=== PATIENT | female | born 1940 | race Caucasian/White ===

== ENCOUNTER 2018-07-24 10:55 | Day surgery (SDC) | payer OTHER ==
[2018-07-22 11:34] VITALS: BMI 37.8
[2018-07-24] MEDS ORDERED: LIDOCAINE HCL/PF 2% SDV 5ML VIAL ONE (11:09)
[2018-07-24] MEDS ORDERED: PROPOFOL 20 ML ONE (11:09)
[2018-07-24 14:23] VITALS: PULSE 74; TEMP 98.4
[2018-07-24 14:43] VITALS: BP 133/82
--- NOTE | 2018-07-26 16:36 | PATH ---
Surgical Pathology Report Patient Name: KASHMIR ALEX [facility]. Rec. #: [id number] /Age/Gender: 1940 (Age: 77) / F Account: [id number] Location: [facility] Taken: 07/24/2018 Received: 07/24/2018 Reported: 07/26/2018 Physicians: Mera Shabazz M.D. Specimen(s) Received A: BX 2ND PORTION DUODENUM B: BX GASTRIC ANTRUM Clinical History Dyspepsia Postoperative diagnosis: Large submucosal lesion, gastric ulcer Final Diagnosis A. SECOND PORTION OF DUODENUM, BIOPSY: DUODENAL MUCOSA WITH NO PATHOLOGIC FINDINGS. B. GASTRIC ANTRUM, BIOPSY: GASTRIC ANTRAL-TYPE MUCOSA SHOWING MILD CHRONIC GASTRITIS. (SEE NOTE) IMMUNOSTAIN IS NEGATIVE FOR H PYLORI ORGANISMS. Note: No submucosal tissue/lesion is identified. Electronically Signed Micheline George M.D. Gross Description A. Received in formalin, labeled "biopsy second portion duodenum" is a maradiaga, irregular portion of soft tissue measuring 0.4 cm. in greatest dimension. The specimen is submitted in toto in one cassette. B. Received in formalin, labeled "biopsy gastric antrum" is a maradiaga, irregular portion of soft tissue measuring 0.3 cm. in greatest dimension. The specimen is submitted in toto in one cassette. 07/25/2018 [facility]07/25/2018
== END 2018-07-24 14:45 ==
LOC: FASU-ENDO 10:55
PROVIDERS: ATTEND Internal Medicine Gastroenterology
PROC: 0DB68ZX Excision of Stomach, Via Natural or Artificial Opening Endoscopic, Diagnostic (ICD-10-PCS; 2018-07-24)
PROC: 0DB98ZX Excision of Duodenum, Via Natural or Artificial Opening Endoscopic, Diagnostic (ICD-10-PCS; principal; 2018-07-24 13:40)
DX: K29.50 Unspecified chronic gastritis without bleeding (principal); K25.9 Gastric ulcer, unspecified as acute or chronic, without hemorrhage or perforation; K44.9 Diaphragmatic hernia without obstruction or gangrene; K22.10 Ulcer of esophagus without bleeding; R10.13 Epigastric pain; K31.9 Disease of stomach and duodenum, unspecified
CPT/HCPCS: 88305-TC; 88342-TC

== ENCOUNTER 2020-02-23 14:34 | Inpatient (IN) | payer OTHER ==
[2020-02-23] MEDS ORDERED: CEFEPIME 2 GM in DEXTROSE 5%-WATER - 100 ML IVPB STA (15:23)
[2020-02-23] MEDS ORDERED: VANCOMYCIN 1,000 MG in DEXTROSE 5%-WATER - 250 ML IVPB STA (15:23)
[2020-02-23] MEDS ORDERED: VANCOMYCIN 1 GRAM (PRE-DOCKED) 1,000 MG/250 ML BAG IVPB ONE (15:40)
[2020-02-23] MEDS ORDERED: CEFEPIME 2 GM/100 ML BAG IVPB ONE ×2 (15:41→16:26)
[2020-02-23] MEDS ORDERED: ACETAMINOPHEN 1000 MG/100 ML BAG IVPB ONE (15:48)
[2020-02-23] MEDS ORDERED: ACETAMINOPHEN INJECTION 100 ML IVPB ONE (16:35)
[2020-02-23 16:40] LABS: BASO % 0.5 % (0-2.0); EOS % 1.4 % (0-4.5); HEMATOCRIT 34.6 % (32.4-45.2); HEMOGLOBIN 11.4 GM/dL (10.7-15.3); MCH 31.9 pg (25.7-33.7); MEAN CELL VOLUME 96.4 fl (80-96); MEAN PLT VOLUME 10.1 fl (7.5-11.1); MONO % 8.8 % (3.8-10.2); NEUT % 71.3 % (42.8-82.8); PLATELET COUNT 214 K/MM3 (134-434); RBC 3.59 M/mm3 (3.60-5.2); RDW 13.7 % (11.6-15.6); WHITE BLOOD COUNT 8.9 K/mm3 (4.0-10.0)
[2020-02-23 16:49] LABS: INR 1.32 (0.83-1.09); PROTHROMBIN TIME (PATIENT) 15.8 SEC (9.7-13.0)
[2020-02-23 16:52] LABS: ACTIVATED PTT 24.1 SECONDS (25.2-36.5)
[2020-02-23 17:00] LABS: CHLORIDE 116 mmol/L (98-107); SODIUM 147 mmol/L (136-145)
[2020-02-23 17:02] LABS: CALCIUM 9.4 mg/dL (8.5-10.1)
[2020-02-23 17:03] LABS: ALBUMIN 2.5 g/dl (3.4-5.0); ANION GAP 6 MMOL/L (8-16); BLOOD UREA NITROGEN 10.9 mg/dL (7-18); CO2 26 mmol/L (21-32); GLUCOSE,RANDOM 91 mg/dL (74-106)
[2020-02-23 17:06] LABS: CREATININE 1.2 mg/dL (0.55-1.3); SGOT/AST 29 U/L (15-37); SGPT/ALT 30 U/L (13-61)
[2020-02-23 17:07] LABS: BILIRUBIN,TOTAL 0.8 mg/dL (0.2-1)
[2020-02-23 17:09] LABS: ALK PHOS 72 U/L (45-117)
[2020-02-23 22:45] LABS: EPI CELLS 22 /uL (0-25.1); HYALINE CASTS 23 /uL (0-3.1); PH,URINE 5.5 (5.0-8.0); URINE APPEARANCE TURBID; URINE BACTERIA 52 /uL (0-1359); URINE BILIRUBIN NEGATIVE (NEGATIVE); URINE COLOR YELLOW; URINE GLUCOSE (UA) NEGATIVE (NEGATIVE); URINE KETONE TRACE (NEGATIVE); URINE LEUK ESTERASE 2+ (NEGATIVE); URINE NITRITE NEGATIVE (NEGATIVE); URINE PROTEIN 2+ (NEGATIVE); URINE RBC 262 /uL (0-23.9); URINE UROBILINOGEN 0.2 mg/dL (0.2-1.0); URINE WBC 8197 /uL (0-25.8)
[2020-02-23] MEDS ORDERED: ERGOCALCIFEROL (VIT D2) 50,000 UNIT (1.25 MG) CAPSULE PO SCH (23:45)
[2020-02-23] MEDS ORDERED: ASPIRIN 81 MG CHEWABLE TABLETS PO ONE (23:45)
[2020-02-24] MEDS ORDERED: SODIUM CHLORIDE 0.45% 1,000 ML IV SCH (00:15)
[2020-02-24] MEDS ORDERED: ASPIRIN 81 MG CHEWABLE TABLETS ONE ×2 (00:28→02:34)
[2020-02-24] MEDS ORDERED: CEFEPIME 1 GM/100 ML BAG IVPB ONE (01:12)
[2020-02-24] MEDS: CEFEPIME HCL/D5W 1 GM/50 ML BAG IVPB SCH ×2 (01:16→02:08)
[2020-02-24] MEDS ORDERED: clonazePAM 0.5 MG TABLET ONE (06:12)
[2020-02-24] MEDS ORDERED: DIVALPROEX SODIUM 125 MG TABLET E.C. ONE (06:13)
[2020-02-24] MEDS ORDERED: GABAPENTIN 100 MG CAPSULE ONE (06:13)
[2020-02-24] MEDS ORDERED: HEPARIN NA (PORCINE) 5,000 UNITS/ML 1ML VIAL ONE (06:13)
[2020-02-24] MEDS ORDERED: LEVOTHYROXINE NA 25 MCG TABLET (FP) ONE (06:15)
[2020-02-24] MEDS: clonazePAM 0.5 MG TABLET PO SCH ×3 (06:21→21:35)
[2020-02-24] MEDS: LEVOTHYROXINE NA 25 MCG TABLET (FP) PO SCH (06:21)
[2020-02-24] MEDS: GABAPENTIN 100 MG CAPSULE PO SCH ×3 (06:21→21:36)
[2020-02-24] MEDS: DIVALPROEX SODIUM 250 MG TABLET E.C. PO SCH ×3 (06:21→21:35)
[2020-02-24] MEDS: HEPARIN NA (PORCINE) 5,000 UNITS/ML 1ML VIAL SQ SCH ×3 (06:21→21:36)
[2020-02-24 07:33] LABS: BASO % 0.6 % (0-2.0); EOS % 3.1 % (0-4.5); HEMATOCRIT 34.2 % (32.4-45.2); HEMOGLOBIN 11.3 GM/dL (10.7-15.3); LYMPH % 10.6 % (8-40); MCH 31.8 pg (25.7-33.7); MEAN CELL VOLUME 96.4 fl (80-96); MEAN PLT VOLUME 10.1 fl (7.5-11.1); MONO % 5.6 % (3.8-10.2); NEUT % 80.1 % (42.8-82.8); PLATELET COUNT 181 K/MM3 (134-434); RBC 3.55 M/mm3 (3.60-5.2); RDW 13.6 % (11.6-15.6); WHITE BLOOD COUNT 11.6 K/mm3 (4.0-10.0)
[2020-02-24 07:56] LABS: ALBUMIN 2.5 g/dl (3.4-5.0); CALCIUM 9.2 mg/dL (8.5-10.1)
[2020-02-24 07:57] LABS: BLOOD UREA NITROGEN 14.9 mg/dL (7-18); MAGNESIUM 2.2 mg/dL (1.8-2.4)
[2020-02-24 08:00] LABS: BILIRUBIN,TOTAL 0.7 mg/dL (0.2-1); CREATININE 1.1 mg/dL (0.55-1.3); PHOSPHOROUS 2.8 mg/dL (2.5-4.9)
[2020-02-24 08:02] LABS: TOT PROT 5.8 g/dl (6.4-8.2)
[2020-02-24] MEDS ORDERED: SODIUM CHLORIDE 0.45% 1,000 ML with POTASSIUM CHLORIDE 10 MEQ IV SCH (08:46)
[2020-02-24] MEDS ORDERED: KCL 10 MEQ IVPB 10 MEQ/100 ML INFUS.BAG IVPB ONE (09:16)
[2020-02-24] MEDS: KCL 10 MEQ IVPB 10 MEQ/100 ML INFUS.BAG IVPB SCH ×3 (09:20→14:46)
[2020-02-24] MEDS ORDERED: ASPIRIN 81 MG CHEWABLE TABLETS PO SCH (10:00)
[2020-02-24] MEDS ORDERED: VANCOMYCIN 1 GM in D5W (PRE-DOCKED) 1,000 MG/250 ML IVPB ONE (10:00)
[2020-02-24] MEDS ORDERED: VANCOMYCIN 1 GRAM (PRE-DOCKED) 1,000 MG/250 ML BAG IVPB ONE (10:00)
[2020-02-24] MEDS ORDERED: PATIENT'S OWN MEDICATION (NON-FORMULARY) (Olopatadine Hcl [Pataday] 2.5 ML Drops) OU SCH (10:00)
[2020-02-24] MEDS ORDERED: CEFEPIME HCL 1 GM VIAL (RESTRICTED TO ID) ONE ×3 (10:03→17:59)
[2020-02-24] MEDS ORDERED: DEXTROSE 5%-WATER 100 ML IVPB ONE ×2 (12:49→17:59)
[2020-02-24] MEDS ORDERED: LORazepam 2 MG/ML SDV VIAL IVPUSH ONE (13:00)
[2020-02-24] MEDS: PANTOPRAZOLE 40 MG TABLET PO SCH (13:07)
[2020-02-24] MEDS: ESCITALOPRAM OXALATE 10 MG TABLET PO SCH (13:07)
[2020-02-24] MEDS: CEFEPIME 1 GM in DEXTROSE 5%-WATER 100 ML IVPB SCH ×2 (14:46→18:02)
[2020-02-24] MEDS: POTASSIUM CHLORIDE 10 MEQ in SODIUM CHLORIDE 0.45% 1,000 ML IV SCH (14:46)
[2020-02-24] MEDS ORDERED: LORazepam 0.5 MG TABLET PO PRN (15:33)
[2020-02-24] MEDS: CLOTRIMAZOLE 1%TOPICAL SOLUTION 30 ML BOTTLE TP SCH (21:34)
[2020-02-24] MEDS: lamoTRIgine 25 MG TABLET PO SCH (21:35)
[2020-02-25] MEDS: POTASSIUM CHLORIDE 10 MEQ in SODIUM CHLORIDE 0.45% 1,000 ML IV SCH ×2 (00:07→17:45)
[2020-02-25] MEDS ORDERED: CEFEPIME HCL 1 GM VIAL (RESTRICTED TO ID) ONE ×3 (01:22→17:42)
[2020-02-25] MEDS ORDERED: DEXTROSE 5%-WATER 100 ML IVPB ONE ×3 (01:22→17:43)
[2020-02-25] MEDS: CEFEPIME 1 GM in DEXTROSE 5%-WATER 100 ML IVPB SCH (02:06)
[2020-02-25] MEDS: HEPARIN NA (PORCINE) 5,000 UNITS/ML 1ML VIAL SQ SCH ×3 (05:39→22:34)
[2020-02-25] MEDS: GABAPENTIN 100 MG CAPSULE PO SCH ×3 (05:39→22:33)
[2020-02-25] MEDS: DIVALPROEX SODIUM 250 MG TABLET E.C. PO SCH ×3 (05:39→22:33)
[2020-02-25] MEDS: clonazePAM 0.5 MG TABLET PO SCH ×3 (05:39→22:33)
[2020-02-25] MEDS: LEVOTHYROXINE NA 25 MCG TABLET (FP) PO SCH (06:07)
[2020-02-25 14:09] LABS: CALCIUM 9.4 mg/dL (8.5-10.1)
[2020-02-25 14:10] LABS: ALBUMIN 2.5 g/dl (3.4-5.0); BLOOD UREA NITROGEN 10.8 mg/dL (7-18)
[2020-02-25 14:15] LABS: BILIRUBIN,TOTAL 0.8 mg/dL (0.2-1); TOT PROT 6.2 g/dl (6.4-8.2)
[2020-02-25] MEDS: ACETAMINOPHEN 500 MG TABLET (FP) PO PRN (14:30)
[2020-02-25] MEDS: PANTOPRAZOLE 40 MG TABLET PO SCH (14:31)
[2020-02-25] MEDS: CEFEPIME 1 GM in DEXTROSE 5%-WATER 1 GM/100 ML BAG IVPB SCH ×2 (14:31→17:45)
[2020-02-25] MEDS: CLOPIDOGREL BISULFATE 75 MG TABLET (FP) PO SCH (14:31)
[2020-02-25] MEDS: CEFEPIME HCL/D5W 1 GM/50 ML BAG IVPB SCH ×3 (14:32→14:38)
[2020-02-25] MEDS: CLOTRIMAZOLE 1%TOPICAL SOLUTION 30 ML BOTTLE TP SCH ×2 (14:44→22:34)
[2020-02-25] MEDS: ESCITALOPRAM OXALATE 10 MG TABLET PO SCH (15:27)
[2020-02-25] MEDS: LORazepam 2 MG/ML SDV VIAL IVPUSH PRN ×2 (15:38→23:26)
[2020-02-25] MEDS: ACETAMINOPHEN 1000 MG/100 ML BAG IVPB PRN ×2 (15:39→23:26)
[2020-02-25] MEDS: lamoTRIgine 25 MG TABLET PO SCH (22:33)
[2020-02-26] MEDS ORDERED: CEFEPIME HCL 1 GM VIAL (RESTRICTED TO ID) ONE ×3 (02:45→18:12)
[2020-02-26] MEDS ORDERED: DEXTROSE 5%-WATER 100 ML IVPB ONE ×3 (02:45→18:12)
[2020-02-26] MEDS: CEFEPIME 1 GM in DEXTROSE 5%-WATER 1 GM/100 ML BAG IVPB SCH ×3 (02:58→18:20)
[2020-02-26 06:27] LABS: BASO % 0.8 % (0-2.0); EOS % 5.7 % (0-4.5); HEMATOCRIT 35.7 % (32.4-45.2); HEMOGLOBIN 11.9 GM/dL (10.7-15.3); LYMPH % 14.2 % (8-40); MCH 32.1 pg (25.7-33.7); MCHC 33.3 g/dl (32.0-36.0); MEAN CELL VOLUME 96.4 fl (80-96); MEAN PLT VOLUME 10.8 fl (7.5-11.1); MONO % 5.6 % (3.8-10.2); NEUT % 73.7 % (42.8-82.8); PLATELET COUNT 200 K/MM3 (134-434); RDW 13.6 % (11.6-15.6); WHITE BLOOD COUNT 9.6 K/mm3 (4.0-10.0)
[2020-02-26] MEDS: clonazePAM 0.5 MG TABLET PO SCH (06:28)
[2020-02-26] MEDS: HEPARIN NA (PORCINE) 5,000 UNITS/ML 1ML VIAL SQ SCH ×3 (06:28→22:55)
[2020-02-26] MEDS: LEVOTHYROXINE NA 25 MCG TABLET (FP) PO SCH (06:28)
[2020-02-26] MEDS: DIVALPROEX SODIUM 250 MG TABLET E.C. PO SCH ×2 (06:28→14:15)
[2020-02-26] MEDS: GABAPENTIN 100 MG CAPSULE PO SCH ×3 (06:28→22:52)
[2020-02-26] MEDS: POTASSIUM CHLORIDE 10 MEQ in SODIUM CHLORIDE 0.45% 1,000 ML IV SCH ×3 (06:28→22:54)
[2020-02-26 06:43] LABS: ALBUMIN 2.4 g/dl (3.4-5.0); CALCIUM 8.9 mg/dL (8.5-10.1)
[2020-02-26 06:48] LABS: BILIRUBIN,TOTAL 0.8 mg/dL (0.2-1); TOT PROT 5.9 g/dl (6.4-8.2)
[2020-02-26] MEDS: CLOPIDOGREL BISULFATE 75 MG TABLET (FP) PO SCH (09:18)
[2020-02-26] MEDS: PANTOPRAZOLE 40 MG TABLET PO SCH (09:19)
[2020-02-26] MEDS: ESCITALOPRAM OXALATE 10 MG TABLET PO SCH (09:20)
[2020-02-26] MEDS: CLOTRIMAZOLE 1%TOPICAL SOLUTION 30 ML BOTTLE TP SCH ×2 (09:29→23:46)
[2020-02-26] MEDS: LORazepam 2 MG/ML SDV VIAL IVPUSH PRN (10:53)
[2020-02-26] MEDS: ACETAMINOPHEN 500 MG TABLET (FP) PO PRN ×2 (18:17→23:57)
[2020-02-26] MEDS: OLANZapine 10 MG TABLET PO SCH (22:52)
[2020-02-26] MEDS: VALPROATE SODIUM 250 MG/5 ML UNIT DOSE CUP PO SCH (22:52)
[2020-02-27] MEDS ORDERED: CEFEPIME HCL 1 GM VIAL (RESTRICTED TO ID) ONE ×5 (00:40→22:25)
[2020-02-27] MEDS ORDERED: DEXTROSE 5%-WATER 100 ML IVPB ONE ×3 (00:40→17:08)
[2020-02-27] MEDS: CEFEPIME 1 GM in DEXTROSE 5%-WATER 1 GM/100 ML BAG IVPB SCH ×3 (01:02→17:09)
[2020-02-27] MEDS: GABAPENTIN 100 MG CAPSULE PO SCH ×3 (05:58→22:00)
[2020-02-27] MEDS: HEPARIN NA (PORCINE) 5,000 UNITS/ML 1ML VIAL SQ SCH ×3 (05:58→21:59)
[2020-02-27] MEDS: VALPROATE SODIUM 250 MG/5 ML UNIT DOSE CUP PO SCH ×2 (05:58→22:00)
[2020-02-27] MEDS: LEVOTHYROXINE NA 25 MCG TABLET (FP) PO SCH (05:59)
[2020-02-27] MEDS: LORazepam 2 MG/ML SDV VIAL IVPUSH PRN ×2 (10:18→18:45)
[2020-02-27] MEDS: OLANZapine 10 MG TABLET PO SCH ×2 (10:20→22:01)
[2020-02-27] MEDS: PANTOPRAZOLE 40 MG TABLET PO SCH (10:20)
[2020-02-27] MEDS: CLOPIDOGREL BISULFATE 75 MG TABLET (FP) PO SCH (10:20)
[2020-02-27] MEDS: ACETAMINOPHEN 500 MG TABLET (FP) PO PRN ×3 (10:20→22:00)
[2020-02-27] MEDS: POTASSIUM CHLORIDE 10 MEQ in SODIUM CHLORIDE 0.45% 1,000 ML IV SCH ×2 (10:23→12:52)
[2020-02-27] MEDS: CLOTRIMAZOLE 1%TOPICAL SOLUTION 30 ML BOTTLE TP SCH ×2 (10:27→22:01)
[2020-02-27] MEDS: NYSTATIN POWDER 100,000 UNITS/GM - 15 GM TOPICAL POWDER TP SCH (22:01)
[2020-02-28] MEDS: CEFEPIME 1 GM in DEXTROSE 5%-WATER 1 GM/100 ML BAG IVPB SCH ×3 (01:46→18:47)
[2020-02-28] MEDS: LORazepam 2 MG/ML SDV VIAL IVPUSH PRN ×3 (01:48→22:16)
[2020-02-28] MEDS: POTASSIUM CHLORIDE 10 MEQ in SODIUM CHLORIDE 0.45% 1,000 ML IV SCH ×2 (03:10→17:02)
[2020-02-28] MEDS: HEPARIN NA (PORCINE) 5,000 UNITS/ML 1ML VIAL SQ SCH ×3 (06:11→22:14)
[2020-02-28] MEDS: LEVOTHYROXINE NA 25 MCG TABLET (FP) PO SCH (06:11)
[2020-02-28] MEDS: GABAPENTIN 100 MG CAPSULE PO SCH ×3 (06:11→22:14)
[2020-02-28] MEDS: ACETAMINOPHEN 500 MG TABLET (FP) PO PRN ×3 (06:11→22:14)
[2020-02-28] MEDS ORDERED: CEFEPIME HCL 1 GM VIAL (RESTRICTED TO ID) ONE ×4 (12:01→22:39)
[2020-02-28] MEDS ORDERED: DEXTROSE 5%-WATER 100 ML IVPB ONE ×4 (12:01→22:39)
[2020-02-28] MEDS ORDERED: PT OWN MED DRAWER 7, Y5N ONE (12:02)
[2020-02-28] MEDS: VALPROATE SODIUM 250 MG/5 ML UNIT DOSE CUP PO SCH ×2 (12:06→22:14)
[2020-02-28] MEDS: CLOTRIMAZOLE 1%TOPICAL SOLUTION 30 ML BOTTLE TP SCH ×2 (12:07→22:33)
[2020-02-28] MEDS: NYSTATIN POWDER 100,000 UNITS/GM - 15 GM TOPICAL POWDER TP SCH ×2 (12:08→22:33)
[2020-02-28] MEDS: CLOPIDOGREL BISULFATE 75 MG TABLET (FP) PO SCH (12:08)
[2020-02-28] MEDS: OLANZapine 10 MG TABLET PO SCH ×2 (12:08→22:14)
[2020-02-28] MEDS: PANTOPRAZOLE 40 MG TABLET PO SCH (12:10)
[2020-02-29] MEDS: POTASSIUM CHLORIDE 10 MEQ in SODIUM CHLORIDE 0.45% 1,000 ML IV SCH ×2 (00:40→11:33)
[2020-02-29] MEDS: CEFEPIME 1 GM in DEXTROSE 5%-WATER 1 GM/100 ML BAG IVPB SCH ×3 (01:39→17:20)
[2020-02-29] MEDS: ACETAMINOPHEN 500 MG TABLET (FP) PO PRN ×2 (05:25→21:30)
[2020-02-29] MEDS: LORazepam 2 MG/ML SDV VIAL IVPUSH PRN ×3 (06:06→22:38)
[2020-02-29] MEDS: GABAPENTIN 100 MG CAPSULE PO SCH ×3 (06:06→21:28)
[2020-02-29] MEDS: LEVOTHYROXINE NA 25 MCG TABLET (FP) PO SCH (06:06)
[2020-02-29] MEDS: HEPARIN NA (PORCINE) 5,000 UNITS/ML 1ML VIAL SQ SCH ×3 (06:06→21:28)
[2020-02-29 08:35] LABS: ALBUMIN 2.2 g/dl (3.4-5.0); CALCIUM 9.6 mg/dL (8.5-10.1)
[2020-02-29 08:36] LABS: BLOOD UREA NITROGEN 7.2 mg/dL (7-18)
[2020-02-29 08:40] LABS: BILIRUBIN,TOTAL 0.6 mg/dL (0.2-1); TOT PROT 6.5 g/dl (6.4-8.2)
[2020-02-29] MEDS ORDERED: CEFEPIME HCL 1 GM VIAL (RESTRICTED TO ID) ONE ×3 (11:38→23:09)
[2020-02-29] MEDS ORDERED: DEXTROSE 5%-WATER 100 ML IVPB ONE ×3 (11:38→23:09)
[2020-02-29] MEDS: PANTOPRAZOLE 40 MG TABLET PO SCH (11:42)
[2020-02-29] MEDS: OLANZapine 10 MG TABLET PO SCH ×2 (11:42→21:29)
[2020-02-29] MEDS: VALPROATE SODIUM 250 MG/5 ML UNIT DOSE CUP PO SCH ×2 (11:43→21:28)
[2020-02-29] MEDS: CLOPIDOGREL BISULFATE 75 MG TABLET (FP) PO SCH (11:43)
[2020-02-29] MEDS: CLOTRIMAZOLE 1%TOPICAL SOLUTION 30 ML BOTTLE TP SCH ×2 (11:43→22:04)
[2020-02-29] MEDS: NYSTATIN POWDER 100,000 UNITS/GM - 15 GM TOPICAL POWDER TP SCH ×2 (11:43→22:04)
[2020-02-29] MEDS: FAMOTIDINE 20 MG TABLET PO SCH ×2 (14:19→21:28)
[2020-02-29] MEDS ORDERED: DEXTROSE 5%-0.45% SALINE 1,000 ML IV SCH (15:45)
[2020-03-01] MEDS: CEFEPIME 1 GM in DEXTROSE 5%-WATER 1 GM/100 ML BAG IVPB SCH ×2 (01:55→10:31)
[2020-03-01] MEDS: HEPARIN NA (PORCINE) 5,000 UNITS/ML 1ML VIAL SQ SCH ×3 (06:00→21:43)
[2020-03-01] MEDS: ACETAMINOPHEN 500 MG TABLET (FP) PO PRN ×2 (06:00→21:55)
[2020-03-01] MEDS: GABAPENTIN 100 MG CAPSULE PO SCH ×3 (06:00→21:43)
[2020-03-01] MEDS: LORazepam 2 MG/ML SDV VIAL IVPUSH PRN (06:02)
[2020-03-01] MEDS: LEVOTHYROXINE NA 25 MCG TABLET (FP) PO SCH (06:22)
[2020-03-01] MEDS ORDERED: CEFEPIME HCL 1 GM VIAL (RESTRICTED TO ID) ONE (10:24)
[2020-03-01] MEDS ORDERED: DEXTROSE 5%-WATER 100 ML IVPB ONE (10:24)
[2020-03-01] MEDS: VALPROATE SODIUM 250 MG/5 ML UNIT DOSE CUP PO SCH ×3 (10:31→21:42)
[2020-03-01] MEDS: CLOTRIMAZOLE 1%TOPICAL SOLUTION 30 ML BOTTLE TP SCH ×2 (10:31→21:54)
[2020-03-01] MEDS: CLOPIDOGREL BISULFATE 75 MG TABLET (FP) PO SCH (10:31)
[2020-03-01] MEDS: OLANZapine 10 MG TABLET PO SCH ×2 (10:31→22:17)
[2020-03-01] MEDS: FAMOTIDINE 20 MG TABLET PO SCH ×2 (10:31→21:43)
[2020-03-01] MEDS: NYSTATIN POWDER 100,000 UNITS/GM - 15 GM TOPICAL POWDER TP SCH ×2 (10:31→21:55)
[2020-03-01] MEDS: LORazepam 2 MG/ML SDV VIAL IM PRN ×2 (13:12→21:43)
[2020-03-01 13:29] LABS: ALBUMIN 2.2 g/dl (3.4-5.0); CALCIUM 9.8 mg/dL (8.5-10.1)
[2020-03-01 13:30] LABS: BLOOD UREA NITROGEN 7.1 mg/dL (7-18)
[2020-03-01 13:32] LABS: CREATININE 0.9 mg/dL (0.55-1.3)
[2020-03-01 13:33] LABS: BILIRUBIN,TOTAL 0.4 mg/dL (0.2-1); TOT PROT 6.2 g/dl (6.4-8.2)
[2020-03-01 16:13] VITALS: BMI 33.2
[2020-03-01] MEDS ORDERED: POTASSIUM CHLORIDE TABS 20 MEQ TABLET.ER (FP) PO ONE (16:45)
[2020-03-01] MEDS: KCL 10 MEQ IVPB 10 MEQ/100 ML INFUS.BAG IVPB SCH ×3 (17:41→20:33)
[2020-03-01 21:13] LABS: BASO % 0.7 % (0-2.0); EOS % 1.8 % (0-4.5); HEMATOCRIT 36.4 % (32.4-45.2); HEMOGLOBIN 12.5 GM/dL (10.7-15.3); MCH 32.7 pg (25.7-33.7); MCHC 34.4 g/dl (32.0-36.0); MEAN CELL VOLUME 95.3 fl (80-96); MONO % 13.9 % (3.8-10.2); NEUT % 61.6 % (42.8-82.8); PLATELET COUNT 281 K/MM3 (134-434); RBC 3.82 M/mm3 (3.60-5.2); RDW 14.3 % (11.6-15.6); WHITE BLOOD COUNT 8.8 K/mm3 (4.0-10.0)
[2020-03-01] MEDS ORDERED: DIVALPROEX SODIUM 500 MG TABLET E.C. PO SCH (22:00)
[2020-03-01 23:02] LABS: ANISOCYTOSIS 1+; MACROCYTOSIS 1+
[2020-03-01 23:03] LABS: PLATELET ESTIMATE ADEQUATE
[2020-03-02] MEDS: GABAPENTIN 100 MG CAPSULE PO SCH ×3 (07:03→21:18)
[2020-03-02] MEDS: LEVOTHYROXINE NA 25 MCG TABLET (FP) PO SCH (07:03)
[2020-03-02] MEDS: ACETAMINOPHEN 500 MG TABLET (FP) PO PRN (07:03)
[2020-03-02] MEDS: HEPARIN NA (PORCINE) 5,000 UNITS/ML 1ML VIAL SQ SCH ×3 (07:04→22:22)
[2020-03-02] MEDS ORDERED: PT OWN MED DRAWER 7, Y5N ONE (09:33)
[2020-03-02] MEDS: VALPROATE SODIUM 250 MG/5 ML UNIT DOSE CUP PO SCH ×2 (10:07→21:17)
[2020-03-02] MEDS: OLANZapine 10 MG TABLET PO SCH ×2 (10:08→21:18)
[2020-03-02] MEDS: CLOPIDOGREL BISULFATE 75 MG TABLET (FP) PO SCH (10:08)
[2020-03-02] MEDS: FAMOTIDINE 20 MG TABLET PO SCH ×2 (10:08→21:18)
[2020-03-02 11:06] LABS: CALCIUM 9.9 mg/dL (8.5-10.1)
[2020-03-02 11:07] LABS: ALBUMIN 2.2 g/dl (3.4-5.0); BLOOD UREA NITROGEN 5.6 mg/dL (7-18); MAGNESIUM 2.2 mg/dL (1.8-2.4)
[2020-03-02 11:10] LABS: CREATININE 0.8 mg/dL (0.55-1.3)
[2020-03-02 11:12] LABS: TOT PROT 6.4 g/dl (6.4-8.2)
[2020-03-02 11:20] LABS: BILIRUBIN,TOTAL 0.4 mg/dL (0.2-1)
[2020-03-02] MEDS: NYSTATIN POWDER 100,000 UNITS/GM - 15 GM TOPICAL POWDER TP SCH ×2 (11:58→22:23)
[2020-03-02] MEDS: CLOTRIMAZOLE 1%TOPICAL SOLUTION 30 ML BOTTLE TP SCH ×2 (11:59→22:22)
[2020-03-02] MEDS: AMINO ACIDS 4.25%/D5W 1,000 ML IV SCH (18:10)
[2020-03-02] MEDS: LORazepam 2 MG/ML SDV VIAL IM PRN (22:22)
[2020-03-03] MEDS: GABAPENTIN 100 MG CAPSULE PO SCH ×3 (05:27→22:09)
[2020-03-03] MEDS: HEPARIN NA (PORCINE) 5,000 UNITS/ML 1ML VIAL SQ SCH ×3 (05:38→22:09)
[2020-03-03] MEDS: LEVOTHYROXINE NA 25 MCG TABLET (FP) PO SCH (06:10)
[2020-03-03] MEDS: CLOPIDOGREL BISULFATE 75 MG TABLET (FP) PO SCH (09:25)
[2020-03-03] MEDS: FAMOTIDINE 20 MG TABLET PO SCH ×2 (09:25→22:09)
[2020-03-03] MEDS: VALPROATE SODIUM 250 MG/5 ML UNIT DOSE CUP PO SCH ×2 (09:25→22:08)
[2020-03-03] MEDS: OLANZapine 10 MG TABLET PO SCH ×2 (09:26→22:09)
[2020-03-03] MEDS: CLOTRIMAZOLE 1%TOPICAL SOLUTION 30 ML BOTTLE TP SCH ×2 (09:30→22:09)
[2020-03-03] MEDS: NYSTATIN POWDER 100,000 UNITS/GM - 15 GM TOPICAL POWDER TP SCH ×2 (09:30→22:09)
[2020-03-03 11:31] LABS: BASO % 0.6 % (0-2.0); HEMATOCRIT 35.5 % (32.4-45.2); HEMOGLOBIN 11.9 GM/dL (10.7-15.3); LYMPH % 18.7 % (8-40); MCHC 33.4 g/dl (32.0-36.0); MEAN CELL VOLUME 95.8 fl (80-96); MEAN PLT VOLUME 10.4 fl (7.5-11.1); MONO % 11.3 % (3.8-10.2); NEUT % 67.4 % (42.8-82.8); PLATELET COUNT 345 K/MM3 (134-434); RDW 14.9 % (11.6-15.6)
[2020-03-03 11:47] LABS: CALCIUM 10.1 mg/dL (8.5-10.1)
[2020-03-03 11:48] LABS: ALBUMIN 2.3 g/dl (3.4-5.0); BLOOD UREA NITROGEN 8.9 mg/dL (7-18)
[2020-03-03 11:51] LABS: CREATININE 0.8 mg/dL (0.55-1.3)
[2020-03-03 11:53] LABS: BILIRUBIN,TOTAL 0.5 mg/dL (0.2-1); TOT PROT 6.6 g/dl (6.4-8.2)
[2020-03-03 12:36] LABS: ANISOCYTOSIS 0; MACROCYTOSIS 0; PLATELET ESTIMATE NORMAL
[2020-03-03] MEDS: KCL 10 MEQ IVPB 10 MEQ/100 ML INFUS.BAG IVPB SCH ×2 (12:50→14:08)
[2020-03-03] MEDS: AMINO ACIDS 4.25%/D5W 1,000 ML IV SCH (16:35)
[2020-03-03] MEDS: ACETAMINOPHEN 500 MG TABLET (FP) PO PRN (22:10)
[2020-03-04] MEDS ORDERED: PT OWN MED DRAWER 7, Y5N ONE (00:57)
[2020-03-04] MEDS: HEPARIN NA (PORCINE) 5,000 UNITS/ML 1ML VIAL SQ SCH ×3 (05:35→21:21)
[2020-03-04] MEDS: GABAPENTIN 100 MG CAPSULE PO SCH ×3 (05:35→21:21)
[2020-03-04] MEDS: LEVOTHYROXINE NA 25 MCG TABLET (FP) PO SCH (06:25)
[2020-03-04] MEDS: OLANZapine 10 MG TABLET PO SCH ×2 (10:45→21:21)
[2020-03-04] MEDS: VALPROATE SODIUM 250 MG/5 ML UNIT DOSE CUP PO SCH ×2 (10:45→21:20)
[2020-03-04] MEDS: FAMOTIDINE 20 MG TABLET PO SCH ×2 (10:45→21:21)
[2020-03-04] MEDS: CLOPIDOGREL BISULFATE 75 MG TABLET (FP) PO SCH (10:45)
[2020-03-04] MEDS: NYSTATIN POWDER 100,000 UNITS/GM - 15 GM TOPICAL POWDER TP SCH ×2 (10:45→21:21)
[2020-03-04] MEDS: CLOTRIMAZOLE 1%TOPICAL SOLUTION 30 ML BOTTLE TP SCH ×2 (10:47→21:20)
[2020-03-04] MEDS ORDERED: AMINO ACIDS 4.25%/D5W 1,000 ML IV SCH (13:33)
[2020-03-04 13:59] LABS: CALCIUM 9.9 mg/dL (8.5-10.1)
[2020-03-04 14:00] LABS: ALBUMIN 2.1 g/dl (3.4-5.0); BLOOD UREA NITROGEN 10.4 mg/dL (7-18)
[2020-03-04 14:03] LABS: CREATININE 0.8 mg/dL (0.55-1.3)
[2020-03-04 14:04] LABS: TOT PROT 5.8 g/dl (6.4-8.2)
[2020-03-04 14:35] LABS: BASO % 0.5 % (0-2.0); EOS % 3.7 % (0-4.5); HEMATOCRIT 32.5 % (32.4-45.2); HEMOGLOBIN 10.9 GM/dL (10.7-15.3); LYMPH % 25.3 % (8-40); MCH 32.8 pg (25.7-33.7); MCHC 33.6 g/dl (32.0-36.0); MEAN CELL VOLUME 97.5 fl (80-96); MEAN PLT VOLUME 10.3 fl (7.5-11.1); MONO % 9.8 % (3.8-10.2); NEUT % 60.7 % (42.8-82.8); PLATELET COUNT 315 K/MM3 (134-434); RBC 3.33 M/mm3 (3.60-5.2); WHITE BLOOD COUNT 6.9 K/mm3 (4.0-10.0)
[2020-03-04 15:05] LABS: ANISOCYTOSIS 0; MACROCYTOSIS 0; PLATELET ESTIMATE NORMAL
[2020-03-04] MEDS ORDERED: LORazepam 2 MG/ML SDV VIAL IVPUSH ONE (18:13)
[2020-03-04] MEDS: POTASSIUM CHLORIDE 20 MEQ in AMINO ACIDS 4.25%/D5W 1,000 ML IV SCH (21:16)
[2020-03-04] MEDS: KCL 10 MEQ IVPB 10 MEQ/100 ML INFUS.BAG IVPB SCH ×2 (21:31→22:51)
[2020-03-04] MEDS ORDERED: ACETAMINOPHEN 1000 MG/100 ML BAG IVPB ONE (22:07)
[2020-03-05] MEDS: KCL 10 MEQ IVPB 10 MEQ/100 ML INFUS.BAG IVPB SCH (01:51)
[2020-03-05] MEDS: HEPARIN NA (PORCINE) 5,000 UNITS/ML 1ML VIAL SQ SCH ×3 (05:38→21:08)
[2020-03-05] MEDS: GABAPENTIN 100 MG CAPSULE PO SCH ×3 (05:39→21:08)
[2020-03-05] MEDS: LEVOTHYROXINE NA 25 MCG TABLET (FP) PO SCH (06:18)
[2020-03-05 07:55] LABS: ALBUMIN 2.4 g/dl (3.4-5.0); CALCIUM 10.9 mg/dL (8.5-10.1)
[2020-03-05 07:56] LABS: BLOOD UREA NITROGEN 10.3 mg/dL (7-18); MAGNESIUM 2.2 mg/dL (1.8-2.4)
[2020-03-05 07:59] LABS: CREATININE 0.8 mg/dL (0.55-1.3)
[2020-03-05 08:00] LABS: BILIRUBIN,TOTAL 0.4 mg/dL (0.2-1); TOT PROT 6.6 g/dl (6.4-8.2)
[2020-03-05] MEDS: CLOPIDOGREL BISULFATE 75 MG TABLET (FP) PO SCH (14:14)
[2020-03-05] MEDS: FAMOTIDINE 20 MG TABLET PO SCH ×2 (14:14→21:08)
[2020-03-05] MEDS: VALPROATE SODIUM 250 MG/5 ML UNIT DOSE CUP PO SCH ×2 (14:14→21:07)
[2020-03-05] MEDS: OLANZapine 10 MG TABLET PO SCH ×2 (14:14→21:10)
[2020-03-05] MEDS: CLOTRIMAZOLE 1%TOPICAL SOLUTION 30 ML BOTTLE TP SCH ×2 (14:15→21:09)
[2020-03-05] MEDS: POTASSIUM CHLORIDE 20 MEQ in AMINO ACIDS 4.25%/D5W 1,000 ML IV SCH (14:15)
[2020-03-05] MEDS: NYSTATIN POWDER 100,000 UNITS/GM - 15 GM TOPICAL POWDER TP SCH ×2 (14:15→21:09)
[2020-03-05] MEDS: SODIUM CHLORIDE 0.45% 1,000 ML IV SCH (17:19)
[2020-03-05] MEDS ORDERED: PT OWN MED DRAWER 7, Y5N ONE (20:53)
[2020-03-05] MEDS: ACETAMINOPHEN 500 MG TABLET (FP) PO PRN (21:07)
[2020-03-06] MEDS: POTASSIUM CHLORIDE 20 MEQ in AMINO ACIDS 4.25%/D5W 1,000 ML IV SCH ×2 (05:24→05:39)
[2020-03-06] MEDS: GABAPENTIN 100 MG CAPSULE PO SCH ×3 (05:24→21:05)
[2020-03-06] MEDS: HEPARIN NA (PORCINE) 5,000 UNITS/ML 1ML VIAL SQ SCH ×3 (05:24→21:02)
[2020-03-06] MEDS: ACETAMINOPHEN 500 MG TABLET (FP) PO PRN ×3 (05:27→21:05)
[2020-03-06] MEDS: LEVOTHYROXINE NA 25 MCG TABLET (FP) PO SCH (06:44)
[2020-03-06] MEDS: CLOPIDOGREL BISULFATE 75 MG TABLET (FP) PO SCH (10:00)
[2020-03-06] MEDS: VALPROATE SODIUM 250 MG/5 ML UNIT DOSE CUP PO SCH ×2 (10:00→21:04)
[2020-03-06] MEDS: OLANZapine 10 MG TABLET PO SCH ×2 (10:01→21:05)
[2020-03-06] MEDS: NYSTATIN POWDER 100,000 UNITS/GM - 15 GM TOPICAL POWDER TP SCH ×2 (10:01→21:05)
[2020-03-06] MEDS: CLOTRIMAZOLE 1%TOPICAL SOLUTION 30 ML BOTTLE TP SCH ×2 (10:01→21:04)
[2020-03-06] MEDS: FAMOTIDINE 20 MG TABLET PO SCH ×2 (10:01→21:02)
[2020-03-06] MEDS ORDERED: LORazepam 2 MG/ML SDV VIAL IM PRN (12:04)
[2020-03-06] MEDS: SODIUM CHLORIDE 0.45% 1,000 ML IV SCH (14:42)
[2020-03-07] MEDS: POTASSIUM CHLORIDE 20 MEQ in AMINO ACIDS 4.25%/D5W 1,000 ML IV SCH (01:15)
[2020-03-07] MEDS: GABAPENTIN 100 MG CAPSULE PO SCH ×3 (05:38→20:59)
[2020-03-07] MEDS: ACETAMINOPHEN 500 MG TABLET (FP) PO PRN ×3 (05:38→21:00)
[2020-03-07] MEDS: HEPARIN NA (PORCINE) 5,000 UNITS/ML 1ML VIAL SQ SCH ×3 (05:38→20:57)
[2020-03-07] MEDS: LEVOTHYROXINE NA 25 MCG TABLET (FP) PO SCH (06:04)
[2020-03-07] MEDS: VALPROATE SODIUM 250 MG/5 ML UNIT DOSE CUP PO SCH ×2 (09:54→20:59)
[2020-03-07] MEDS: OLANZapine 10 MG TABLET PO SCH ×2 (09:55→20:59)
[2020-03-07] MEDS: NYSTATIN POWDER 100,000 UNITS/GM - 15 GM TOPICAL POWDER TP SCH ×2 (09:55→21:01)
[2020-03-07] MEDS: CLOTRIMAZOLE 1%TOPICAL SOLUTION 30 ML BOTTLE TP SCH ×2 (09:55→21:01)
[2020-03-07] MEDS: FAMOTIDINE 20 MG TABLET PO SCH ×2 (09:55→21:00)
[2020-03-07] MEDS: CLOPIDOGREL BISULFATE 75 MG TABLET (FP) PO SCH (09:55)
[2020-03-07] MEDS: SODIUM CHLORIDE 0.45% 1,000 ML IV SCH (19:00)
[2020-03-08] MEDS: GABAPENTIN 100 MG CAPSULE PO SCH ×2 (05:41→13:27)
[2020-03-08] MEDS: ACETAMINOPHEN 500 MG TABLET (FP) PO PRN (05:41)
[2020-03-08] MEDS: HEPARIN NA (PORCINE) 5,000 UNITS/ML 1ML VIAL SQ SCH (05:41)
[2020-03-08] MEDS: LEVOTHYROXINE NA 25 MCG TABLET (FP) PO SCH (06:51)
[2020-03-08 07:49] LABS: BASO % 0.7 % (0-2.0); EOS % 2.8 % (0-4.5); HEMATOCRIT 33.9 % (32.4-45.2); HEMOGLOBIN 11.4 GM/dL (10.7-15.3); LYMPH % 31.4 % (8-40); MCH 33.4 pg (25.7-33.7); MCHC 33.7 g/dl (32.0-36.0); MEAN PLT VOLUME 9.4 fl (7.5-11.1); MONO % 12.6 % (3.8-10.2); NEUT % 52.5 % (42.8-82.8); PLATELET COUNT 390 K/MM3 (134-434); RBC 3.43 M/mm3 (3.60-5.2); RDW 16.4 % (11.6-15.6)
[2020-03-08 08:04] LABS: CALCIUM 10.5 mg/dL (8.5-10.1)
[2020-03-08 08:05] LABS: ALBUMIN 2.3 g/dl (3.4-5.0); BLOOD UREA NITROGEN 9.7 mg/dL (7-18)
[2020-03-08 08:08] LABS: CREATININE 0.8 mg/dL (0.55-1.3)
[2020-03-08 08:10] LABS: BILIRUBIN,TOTAL 0.5 mg/dL (0.2-1); TOT PROT 6.2 g/dl (6.4-8.2)
[2020-03-08] MEDS: OLANZapine 10 MG TABLET PO SCH ×2 (09:12→22:38)
[2020-03-08] MEDS: NYSTATIN POWDER 100,000 UNITS/GM - 15 GM TOPICAL POWDER TP SCH ×2 (09:13→22:46)
[2020-03-08] MEDS: VALPROATE SODIUM 250 MG/5 ML UNIT DOSE CUP PO SCH ×2 (09:13→22:38)
[2020-03-08] MEDS: CLOPIDOGREL BISULFATE 75 MG TABLET (FP) PO SCH (09:13)
[2020-03-08] MEDS: CLOTRIMAZOLE 1%TOPICAL SOLUTION 30 ML BOTTLE TP SCH ×2 (09:13→22:47)
[2020-03-08] MEDS: FAMOTIDINE 20 MG TABLET PO SCH ×2 (09:13→22:38)
[2020-03-08] MEDS: SODIUM CHLORIDE 1,000 ML IV SCH (13:28)
[2020-03-08 15:17] LABS: MACROCYTOSIS 1+; PLATELET ESTIMATE NORMAL
[2020-03-08 15:18] LABS: ANISOCYTOSIS 1+
[2020-03-08] MEDS ORDERED: PT OWN MED DRAWER 7, Y5N ONE (22:31)
[2020-03-09] MEDS: VALPROATE SODIUM 250 MG/5 ML UNIT DOSE CUP PO SCH ×2 (00:16→10:16)
[2020-03-09] MEDS: SODIUM CHLORIDE 1,000 ML IV SCH (02:15)
[2020-03-09] MEDS: LEVOTHYROXINE NA 25 MCG TABLET (FP) PO SCH (06:20)
[2020-03-09] MEDS ORDERED: MULTIVIT-MINERALS ORAL LIQUID PO SCH (10:00)
[2020-03-09] MEDS ORDERED: PT OWN MED DRAWER 7, Y5N ONE (10:12)
[2020-03-09] MEDS: OLANZapine 10 MG TABLET PO SCH (10:16)
[2020-03-09] MEDS: FAMOTIDINE 20 MG TABLET PO SCH (10:16)
[2020-03-09] MEDS: CLOPIDOGREL BISULFATE 75 MG TABLET (FP) PO SCH (10:16)
[2020-03-09] MEDS: NYSTATIN POWDER 100,000 UNITS/GM - 15 GM TOPICAL POWDER TP SCH (10:17)
[2020-03-09] MEDS: CLOTRIMAZOLE 1%TOPICAL SOLUTION 30 ML BOTTLE TP SCH (10:28)
[2020-03-09 18:33] VITALS: BP 154/70; PULSE 97; TEMP 98.1
== END 2020-03-09 18:51 | DRG 871 ==
LOC: JER 14:34 → JERBED 19:01 → J7W 02-24 09:34
PROVIDERS: ADMIT Internal Medicine; ATTEND Internal Medicine
DX: A41.9 Sepsis, unspecified organism (principal); G93.41 Metabolic encephalopathy; J18.9 Pneumonia, unspecified organism; I63.9 Cerebral infarction, unspecified; E87.0 Hyperosmolality and hypernatremia; N39.0 Urinary tract infection, site not specified; J98.11 Atelectasis; E03.9 Hypothyroidism, unspecified; F31.9 Bipolar disorder, unspecified; K21.9 Gastro-esophageal reflux disease without esophagitis; Z88.0 Allergy status to penicillin; E87.6 Hypokalemia; E86.1 Hypovolemia; E86.0 Dehydration; K31.89 Other diseases of stomach and duodenum; E16.2 Hypoglycemia, unspecified; E83.52 Hypercalcemia; D32.9 Benign neoplasm of meninges, unspecified; F25.9 Schizoaffective disorder, unspecified
CPT/HCPCS: 36415; 70450-TC; 70460-TC; 71045-TC-FY; 71250-TC; 72070-TC-FY; 72100-TC-FY; 74177-TC; 74230-TC-FY; 76705-TC; 80053; 80061; 80164; 81003; 82140; 82962; 83605; 83721; 83735; 84100; 84443; 84484; 85025; 85610; 85651; 85730; 86705; 87040; 87086; 87522; 92611-GN; 93005; 93010; 99285-25; C9803; J0131; J1644; Q9967; U0003